=== PATIENT | female | born 1945 | race Caucasian/White ===

== ENCOUNTER 2017-08-14 14:34 | Inpatient (IN) | payer OTHER ==
[~2017-08-14] VITALS: Ht 160 cm; Wt 59.0 kg
== END 2017-08-18 13:32 | disposition home or self-care (01) | DRG 392 ==
LOC: ER 14:34 → SEC-K 08-15 06:11 → SURH 08-15 06:11
DX: K57.32 Diverticulitis of large intestine without perforation or abscess without bleeding (principal)

== ENCOUNTER 2017-10-02 15:08 | Outpatient (CLI) | payer OTHER | END 2017-10-02 15:17 | disposition home or self-care (01) | LOC: MAMO-SONO 15:08 | DX: N63.41 Unspecified lump in right breast, subareolar (principal) ==

== ENCOUNTER 2017-10-10 10:18 | Outpatient (CLI) | payer OTHER | END 2017-10-10 10:19 | disposition home or self-care (01) | LOC: LAB 10:18 | DX: Z01.812 Encounter for preprocedural laboratory examination (principal) ==

== ENCOUNTER → 2017-11-03 | Outpatient (CLI) | payer OTHER | END | disposition home or self-care (01) | LOC: LAB 08:07 | DX: D64.89 Other specified anemias (principal); R74.0 Nonspecific elevation of levels of transaminase and lactic acid dehydrogenase [LDH]; C50.811 Malignant neoplasm of overlapping sites of right female breast; D55.0 Anemia due to glucose-6-phosphate dehydrogenase [G6PD] deficiency; C50.112 Malignant neoplasm of central portion of left female breast; Z17.0 Estrogen receptor positive status [ER+] ==

== ENCOUNTER 2017-12-11 08:29 | Outpatient (CLI) | payer OTHER ==
[2017-12-15] MEDS ORDERED: MULTI VITAMIN1 EACH PO (15:47)
[2017-12-15] MEDS ORDERED: CALTRATE 600+D1 EAC1 PO (15:47)
== END 2017-12-11 09:30 | disposition home or self-care (01) ==
LOC: NUCLEAR 08:29
DX: C50.811 Malignant neoplasm of overlapping sites of right female breast (principal); C50.112 Malignant neoplasm of central portion of left female breast; Z17.0 Estrogen receptor positive status [ER+]
CPT/HCPCS: 78815; A9552

== ENCOUNTER 2017-12-19 06:05 | Day surgery (SDC) | payer OTHER ==
[~2017-12-19 06:05] MED LIST: CALTRATE 600+D1 EAC1 PO; MULTI VITAMIN1 EACH PO
== END 2017-12-19 14:10 | disposition home or self-care (01) ==
LOC: CIR.AMB 06:05
DX: C50.911 Malignant neoplasm of unspecified site of right female breast (principal)
CPT/HCPCS: 36561; C1751

== ENCOUNTER 2018-05-23 08:40 | Outpatient (CLI) | payer OTHER | END 2018-05-23 08:41 | disposition home or self-care (01) | LOC: LAB 08:40 | DX: C50.011 Malignant neoplasm of nipple and areola, right female breast (principal); Z01.812 Encounter for preprocedural laboratory examination; Z01.811 Encounter for preprocedural respiratory examination; Z01.810 Encounter for preprocedural cardiovascular examination ==

== ENCOUNTER 2018-05-24 14:17 | Inpatient (IN) | payer OTHER ==
[~2018-05-24] VITALS: Ht 160 cm; Wt 56.2 kg
== END 2018-06-09 08:40 | disposition home or self-care (01) | DRG 583 ==
LOC: O/R 06-07 06:22 → EDSTATUS 06-07 09:40 → SURH 06-07 09:47 → CIR.AMB 06-07 14:16 → SURH 06-07 16:46
PROVIDERS: ADMIT Specialist
PROC: 0HTT0ZZ Resection of Right Breast, Open Approach (ICD-10-PCS; principal; 2018-06-07 11:00)
DX: C50.011 Malignant neoplasm of nipple and areola, right female breast (principal)

== ENCOUNTER 2018-09-25 06:00 | Day surgery (SDC) | payer OTHER | END 2018-09-26 13:00 | disposition home or self-care (01) | LOC: CIR.AMB 06:00 → O/R 10:51 → SURH 11:13 → CIR.AMB 17:51 → SURH 09-26 09:44 → CIR.AMB 09-26 13:00 | DX: D05.12 Intraductal carcinoma in situ of left breast (principal) ==

== ENCOUNTER 2018-11-19 10:39 | Outpatient (CLI) | payer OTHER | END 2018-11-19 10:52 | disposition home or self-care (01) | LOC: SONOGRAMA 10:39 | DX: E04.1 Nontoxic single thyroid nodule (principal) ==

== ENCOUNTER 2019-01-10 09:34 | Outpatient (CLI) | payer OTHER | END 2019-01-10 09:44 | disposition home or self-care (01) | LOC: SONOGRAMA 09:34 | DX: E04.2 Nontoxic multinodular goiter (principal) ==

== ENCOUNTER 2019-02-25 09:15 | Outpatient (CLI) | payer OTHER | END 2019-02-25 09:19 | disposition home or self-care (01) | LOC: SONOGRAMA 09:15 | DX: Z85.3 Personal history of malignant neoplasm of breast (principal) ==

== ENCOUNTER 2020-03-31 15:30 | Outpatient (CLI) | payer OTHER | END 2020-03-31 15:31 | disposition home or self-care (01) | LOC: PPH VACUNA 15:30 | PROVIDERS: ATTEND Emergency Medicine Pediatric Emergency Medicine | DX: Z23 Encounter for immunization (principal) ==

== ENCOUNTER 2020-04-21 11:18 | Outpatient (CLI) | payer OTHER | END 2020-04-21 15:55 | disposition home or self-care (01) | LOC: PPH VACUNA 11:18 | PROVIDERS: ATTEND Emergency Medicine Pediatric Emergency Medicine | DX: Z23 Encounter for immunization (principal) ==

== ENCOUNTER 2020-11-26 08:00 | Outpatient (CLI) | payer OTHER | END 2020-11-26 08:30 | disposition home or self-care (01) | LOC: PPH VACUNA 08:00 | DX: Z23 Encounter for immunization (principal) ==

== ENCOUNTER 2021-06-28 13:49 | Inpatient (IN) | payer OTHER ==
[~2021-06-28] VITALS: Ht 157.5 cm; Wt 54.9 kg
--- NOTE | 2021-06-28 14:53 | NUR ---
SE RECIBE PTE ALERTA Y ORIENTADA X3. REFIERE MAREOS Y DEBILIDAD DESDE ESTA MANANA. INDICA ES PTE DE CA DEL SENO, SE ATIENDE CON DR. MARYANNE MAY Y CON DR. REED. INDICA PADECE DE DIVERTICULITIS Y ARAIZA ESTADO EN DIETA ESTRICTA DESDE HACE UNAS SEMANAS. SE REALIZA ECG, SE MUESTRA A DR. CHAPA QUIEN INDICA COLOCAR A PTE EN CRITICO. SE UBICA PTE.
[2021-06-29] MEDS ORDERED: INTESTINEX680 M1 (14:22)
[2021-06-29] MEDS ORDERED: DICYCLOMINE HCL20 MG (14:22)
[2021-07-02] MEDS ORDERED: TRAMADOL HCL50 MG PO (11:34)
== END 2021-07-02 12:25 | disposition home or self-care (01) | DRG 598 ==
LOC: ER 13:49 → SURH 20:34 → MEDI 20:34 → MEDJ 21:41 → SURH 21:51
PROVIDERS: ADMIT Internal Medicine Hematology & Oncology; ATTEND Internal Medicine Hematology & Oncology
PROC: B246ZZZ Ultrasonography of Right and Left Heart (ICD-10-PCS; 2021-06-28)
PROC: C22G1ZZ Tomographic (Tomo) Nuclear Medicine Imaging of Myocardium using Technetium 99m (Tc-99m) (ICD-10-PCS; 2021-06-28)
PROC: 4A02XM4 Measurement of Cardiac Total Activity, External Approach (ICD-10-PCS; 2021-06-28)
PROC: 3E073KZ Introduction of Other Diagnostic Substance into Coronary Artery, Percutaneous Approach (ICD-10-PCS; 2021-06-28)
PROC: 4A12X4Z Monitoring of Cardiac Electrical Activity, External Approach (ICD-10-PCS; 2021-06-29)
PROC: 0W9930Z Drainage of Right Pleural Cavity with Drainage Device, Percutaneous Approach (ICD-10-PCS; principal; 2021-06-30)
PROC: BW24YZZ Computerized Tomography (CT Scan) of Chest and Abdomen using Other Contrast (ICD-10-PCS; 2021-06-30)
DX: C79.2 Secondary malignant neoplasm of skin (principal); J91.0 Malignant pleural effusion; C79.89 Secondary malignant neoplasm of other specified sites; J94.2 Hemothorax; C50.911 Malignant neoplasm of unspecified site of right female breast; C50.912 Malignant neoplasm of unspecified site of left female breast; L98.499 Non-pressure chronic ulcer of skin of other sites with unspecified severity; Z20.822 Contact with and (suspected) exposure to COVID-19

== ENCOUNTER 2021-08-03 12:03 | Outpatient (CLI) | payer OTHER ==
[~2021-08-03 12:03] MED LIST changes: +DICYCLOMINE HCL20 MG; +INTESTINEX680 M1; +TRAMADOL HCL50 MG PO
== END 2021-08-03 12:08 | disposition home or self-care (01) ==
LOC: RAD 12:03
PROVIDERS: ATTEND Internal Medicine Hematology & Oncology
DX: J90 Pleural effusion, not elsewhere classified (principal); J93.9 Pneumothorax, unspecified

== ENCOUNTER → 2021-10-08 | Outpatient (CLI) | payer OTHER | END | disposition home or self-care (01) | LOC: PPH VACUNA 11:03 | PROVIDERS: ATTEND Emergency Medicine Pediatric Emergency Medicine | DX: Z23 Encounter for immunization (principal) ==

== ENCOUNTER 2022-01-18 10:51 | Inpatient (IN) | payer OTHER ==
[~2022-01-18] VITALS: Ht 157.5 cm; Wt 43.1 kg
--- NOTE | 2022-01-18 11:15 | NUR ---
PTE ALERTA,ESTABLE Y ORIENTADA.ESTA REFIERE QUE DESDE HACE 3 MERLOS SE SIENTE DEBIL.
--- NOTE | 2022-01-18 12:18 | NUR ---
SE LLAMA A PTE EN YOVANI DE ESPERA Y NO RESPONDE. ESTA EN ESTUDIO.
--- NOTE | 2022-01-18 12:35 | NUR ---
SE LE ORIENTA A PACIENTE SOBRE LAS ORDENES MEDICAS, REFIERE ENTEDER LAS MISMAS. SE LE SHELL LAS MUETRAS Y SE LE REALIZA [place] LA ORDEN MEDICA.
--- NOTE | 2022-01-18 18:43 | NUR ---
SE CANALIZA A PTE EN BRAZO ABILIO AREA ANTECUBITAL.
[2022-01-19] MEDS ORDERED: INTESTINEX680 M1 (14:46)
[2022-01-19] MEDS ORDERED: DICYCLOMINE HCL20 MG (14:46)
[2022-01-25] MEDS ORDERED: INTESTINEX680 M1 PO (09:05)
[2022-01-25] MEDS ORDERED: PREDNISONE10 MG PO (09:06)
[2022-01-25] MEDS ORDERED: FLUDROCORTISON0.1 MG PO (09:06)
[2022-01-25] MEDS ORDERED: SENOKOT-S TABL1 EACH PO (09:07)
[2022-01-25] MEDS ORDERED: XANAX0.25 MG PO (09:08)
== END 2022-01-25 18:23 | disposition home or self-care (01) | DRG 644 ==
LOC: ER 10:51 → SURH 21:24
PROVIDERS: ADMIT Internal Medicine Hematology & Oncology; ATTEND Internal Medicine Hematology & Oncology
DX: E22.2 Syndrome of inappropriate secretion of antidiuretic hormone (principal); C79.2 Secondary malignant neoplasm of skin; J91.0 Malignant pleural effusion; E27.49 Other adrenocortical insufficiency; R09.02 Hypoxemia; E23.0 Hypopituitarism; C50.911 Malignant neoplasm of unspecified site of right female breast; E31.8 Other polyglandular dysfunction; Z20.822 Contact with and (suspected) exposure to COVID-19